=== PATIENT | female | born 1990 | race Caucasian/White ===

== ENCOUNTER 2020-08-24 21:07 | Emergency (ER) | payer OTHER ==
[2020-08-24] MEDS ORDERED: ONDANSETRON 4 MG/2 ML VIAL IVP STA (21:59)
[2020-08-24] MEDS ORDERED: SODIUM CHLORIDE 0.9% 1,000 ML IV STA (21:59)
[2020-08-24] MEDS ORDERED: PANTOPRAZOLE 40 MG/10 ML VIAL IVP STA (22:11)
[2020-08-24 22:20] LABS: Basophils % (A) 1 %; Eosinophils # (A) 0.1 k/uL (0-0.7); Eosinophils % (A) 2 %; HCT 43.8 % (34.0-46.0); Lymphocytes # (A) 2.1 k/uL (1.0-4.8); Lymphocytes % (A) 36 %; MCH 29.9 pg (25.0-35.0); MCHC 34.3 g/dL (31.0-37.0); Monocytes # (A) 0.3 k/uL (0-1.0); Monocytes % (A) 5 %; Neutrophils # (A) 3.2 k/uL (1.3-7.7); Neutrophils % (A) 55 %; Platelet Count 167 k/uL (150-450); RBC 5.04 m/uL (3.80-5.40); RDW 13.1 % (11.5-15.5); WBC 5.8 k/uL (3.8-10.6)
[2020-08-24 22:26] LABS: Appearance,Urine Clear (Clear); Bilirubin,Urine Negative (Negative); Blood,Urine Small (Negative); Color,Urine Yellow; Glucose,Urine (UA) Negative (Negative); Ketones,Urine Negative (Negative); Leukocyte Esterase,Urine Negative (Negative); Mucus,Urine Rare /hpf; Nitrite,Urine Negative (Negative); PH, Urine 6.5 (5.0-8.0); Protein,Urine Negative (Negative); RBC,Urine 1 /hpf (0-5); Specific Gravity,Urine 1.019 (1.001-1.035); Squamous Epithelial Cell,Urine 6 /hpf (0-4); Urobilinogen,Urine <2.0 mg/dL (<2.0); WBC,Urine 2 /hpf (0-5)
[2020-08-24 22:28] LABS: ALT 20 U/L (4-34); AST 22 U/L (14-36); African American GFR (CKD) >90 (>60 ml/min/1.73 sqM); Albumin 4.1 g/dL (3.5-5.0); Alkaline Phosphatase 59 U/L (38-126); Amylase 50 U/L (30-110); Anion Gap 7 mmol/L; Blood Urea Nitrogen 14 mg/dL (7-17); Calcium 9.1 mg/dL (8.4-10.2); Carbon Dioxide 22 mmol/L (22-30); Chloride 109 mmol/L (98-107); Glucose 91 mg/dL (74-99); Lipase 89 U/L (23-300); Non-African American GFR(CKD) >90 (>60 ml/min/1.73 sqM); Potassium 4.2 mmol/L (3.5-5.1); Sodium 138 mmol/L (137-145); Total Bilirubin 0.4 mg/dL (0.2-1.3)
--- NOTE | 2020-08-24 22:29 | ED ---
Abdominal Pain HPI - General Chief Complaint: Abdominal Pain Stated Complaint: Vomiting, Upper Resp Time Seen by Provider: 08/24/20 21:58 Source: patient Mode of arrival: ambulatory Limitations: no limitations - History of Present Illness Initial Comments: 29-year-old female presenting to the emergency department with a chief complaint of abdominal pain nausea vomiting diarrhea. Patient reports symptoms started about 2 days ago with diarrhea. She states this occurred after she had a burger from [employer] and she noticed the meat was redder than usual. Patient states she was hungry so she ate it. She reports today she has also developed nausea with multiple episodes of nonbilious and nonbloody vomiting. Patient reports she has not been able to keep much food down. She states there is some epigastric and right upper quadrant abdominal pain. She does report some generalized back pain as well. Denies any fevers or chills. She denies any hematuria, hematochezia or melena. Denies any urinary or vaginal symptoms. Denies chest pain shortness of breath. Patient reports surgical history of 2 C- sections and tubal ligation. - Related Data Home Medications Medication Instructions Recorded Confirmed Baclofen 10 mg PO HS PRN 08/24/20 08/24/20 Previous Rx's Medication Instructions Recorded Ondansetron Odt [Zofran Odt] 4 mg PO Q8HR PRN #20 tab 08/24/20 Allergies Allergy/AdvReac Type Severity Reaction Status Date / Time famotidine [From Pepcid] Allergy Nausea & Verified 08/24/20 23:11 Vomiting latex Allergy Rash/Hives Verified 08/24/20 23:11 prednisone Allergy Nausea & Verified 08/24/20 23:11 Vomiting Review of Systems ROS Statement: Those systems with pertinent positive or pertinent negative responses have been documented in the HPI. ROS Other: All systems not noted in ROS Statement are negative. Past Medical History Additional Past Medical History / Comment(s): endometriosis, hernia History of Any Multi-Drug Resistant Organisms: MRSA Date of last positivie culture/infection: 2007 MDRO Source:: (R) buttock Past Surgical History: Section Past Psychological History: Bipolar, Depression Smoking Status: Current every day smoker Past Alcohol Use History: Occasional Past Drug Use History: None Reported General Exam Limitations: no limitations General appearance: alert, in no apparent distress Head exam: Present: atraumatic, normocephalic, normal inspection Eye exam: Present: normal appearance, PERRL, EOMI Pupils: Present: normal accommodation ENT exam: Present: normal exam, normal oropharynx, mucous membranes moist, TM's normal bilaterally, normal external ear exam Neck exam: Present: normal inspection, full ROM. Absent: tenderness Respiratory exam: Present: normal lung sounds bilaterally. Absent: respiratory distress, wheezes, rales Cardiovascular Exam: Present: regular rate, normal rhythm, normal heart sounds. Absent: bradycardia, tachycardia, systolic murmur, diastolic murmur GI/Abdominal exam: Present: soft, tenderness (Upper abdominal pain. Negative Ny sign), normal bowel sounds. Absent: distended, guarding, rebound, rigid Extremities exam: Present: normal inspection, full ROM, normal capillary refill. Absent: tenderness, pedal edema, joint swelling, calf tenderness Back exam: Present: normal inspection, full ROM. Absent: tenderness, CVA tenderness (R), CVA tenderness (L) Neurological exam: Present: alert, oriented X3, normal gait Psychiatric exam: Present: normal affect, normal mood Skin exam: Present: warm, dry, intact, normal color Course Vital Signs 08/24/20 08/24/20 08/24/20 21:14 22:20 23:55 Temperature 98.6 F 98.1 F Pulse Rate 82 70 Respiratory 18 16 18 Rate Blood Pressure 143/98 150/98 O2 Sat by Pulse 98 100 Oximetry Medical Decision Making - Medical Decision Making 29-year-old female presenting to the emergency department with chief complaint nausea vomiting diarrhea and abdominal pain. On Physical examination, she had upper abdominal tenderness. Negative Ny sign. CBC CMP and UA is unremarkable. Patient is not . Right upper quadrant ultrasound is unremarkable. Patient was given IV fluids, antiemetics and Protonix. Our evaluation, patient continued to be nauseous. She was also given Reglan, Benadryl and Toradol after she also developed a headache. I suspect the patient has developed gastroneuritis secondary to eating a [employer] burger that apparently was not thoroughly cooked. Patient was discharged with Zofran. She was advised to drink plenty of fluids. She was also advised to follow with her primary care physician. Hand hygiene is also very important and it was stressed to her. Strict return parameters were thoroughly discussed the patient is worsening agreeable. Case discussed with physician. - Lab Data Result diagrams: 08/24/20 22:07 08/24/20 22:07 Lab Results 08/24/20 08/24/20 08/24/20 Range/Units 22:05 22:07 22:07 WBC 5.8 (3.8-10.6) k/uL RBC 5.04 (3.80-5.40) m/uL Hgb 15.0 (11.4-16.0) gm/dL Hct 43.8 (34.0-46.0) % MCV 87.0 (80.0-100.0) fL MCH 29.9 (25.0-35.0) pg MCHC 34.3 (31.0-37.0) g/dL RDW 13.1 (11.5-15.5) % Plt Count 167 (150-450) k/uL MPV 8.0 Neutrophils % 55 % Lymphocytes % 36 % Monocytes % 5 % Eosinophils % 2 % Basophils % 1 % Neutrophils # 3.2 (1.3-7.7) k/uL Lymphocytes # 2.1 (1.0-4.8) k/uL Monocytes # 0.3 (0-1.0) k/uL Eosinophils # 0.1 (0-0.7) k/uL Basophils # 0.0 (0-0.2) k/uL Sodium 138 (137-145) mmol/L Potassium 4.2 (3.5-5.1) mmol/L Chloride 109 H (98-107) mmol/L Carbon Dioxide 22 (22-30) mmol/L Anion Gap 7 mmol/L BUN 14 (7-17) mg/dL Creatinine 0.80 (0.52-1.04) mg/dL Est GFR (CKD-EPI)AfAm >90 (>60 ml/min/1.73 sqM) Est GFR (CKD-EPI)NonAf >90 (>60 ml/min/1.73 sqM) Glucose 91 (74-99) mg/dL Calcium 9.1 (8.4-10.2) mg/dL Total Bilirubin 0.4 (0.2-1.3) mg/dL AST 22 (14-36) U/L ALT 20 (4-34) U/L Alkaline Phosphatase 59 (38-126) U/L Total Protein 7.0 (6.3-8.2) g/dL Albumin 4.1 (3.5-5.0) g/dL Amylase 50 (30-110) U/L Lipase 89 (23-300) U/L Urine Color Urine Appearance (Clear) Urine pH (5.0-8.0) Ur Specific [place] (1.001-1.035) Urine Protein (Negative) Urine Glucose (UA) (Negative) Urine Ketones (Negative) Urine Blood (Negative) Urine Nitrite (Negative) Urine Bilirubin (Negative) Urine Urobilinogen (<2.0) mg/dL Ur Leukocyte Esterase (Negative) Urine RBC (0-5) /hpf Urine WBC (0-5) /hpf Ur Squamous Epith Cells (0-4) /hpf Urine Mucus (None) /hpf Urine HCG, Qual Not Detected (Not Detectd) 08/24/20 Range/Units 22:17 WBC (3.8-10.6) k/uL RBC (3.80-5.40) m/uL Hgb (11.4-16.0) gm/dL Hct (34.0-46.0) % MCV (80.0-100.0) fL MCH (25.0-35.0) pg MCHC (31.0-37.0) g/dL RDW (11.5-15.5) % Plt Count (150-450) k/uL MPV Neutrophils % % Lymphocytes % % Monocytes % % Eosinophils % % Basophils % % Neutrophils # (1.3-7.7) k/uL Lymphocytes # (1.0-4.8) k/uL Monocytes # (0-1.0) k/uL Eosinophils # (0-0.7) k/uL Basophils # (0-0.2) k/uL Sodium (137-145) mmol/L Potassium (3.5-5.1) mmol/L Chloride (98-107) mmol/L Carbon Dioxide (22-30) mmol/L Anion Gap mmol/L BUN (7-17) mg/dL Creatinine (0.52-1.04) mg/dL Est GFR (CKD-EPI)AfAm (>60 ml/min/1.73 sqM) Est GFR (CKD-EPI)NonAf (>60 ml/min/1.73 sqM) Glucose (74-99) mg/dL Calcium (8.4-10.2) mg/dL Total Bilirubin (0.2-1.3) mg/dL AST (14-36) U/L ALT (4-34) U/L Alkaline Phosphatase (38-126) U/L Total Protein (6.3-8.2) g/dL Albumin (3.5-5.0) g/dL Amylase (30-110) U/L Lipase (23-300) U/L Urine Color Yellow Urine Appearance Clear (Clear) Urine pH 6.5 (5.0-8.0) Ur Specific [place] 1.019 (1.001-1.035) Urine Protein Negative (Negative) Urine Glucose (UA) Negative (Negative) Urine Ketones Negative (Negative) Urine Blood Small H (Negative) Urine Nitrite Negative (Negative) Urine Bilirubin Negative (Negative) Urine Urobilinogen <2.0 (<2.0) mg/dL Ur Leukocyte Esterase Negative (Negative) Urine RBC 1 (0-5) /hpf Urine WBC 2 (0-5) /hpf Ur Squamous Epith Cells 6 H (0-4) /hpf Urine Mucus Rare H (None) /hpf Urine HCG, Qual (Not Detectd) Disposition Clinical Impression: Nausea vomiting and diarrhea, Gastroenteritis Disposition: HOME SELF-CARE Condition: Good Instructions (If sedation given, give patient instructions): Gastroenteritis (DC) Additional Instructions: Take prescribed medication as directed. Drink plenty of fluids. Follow with the primary care physician. Return to emergency department if symptoms worsen. Prescriptions: Ondansetron Odt [Zofran Odt] 4 mg PO Q8HR PRN #20 tab PRN Reason: Nausea Is patient prescribed a controlled substance at d/c from ED?: No Referrals: Billy Becker MD [Primary Care Provider] - 1-2 days Time of Disposition: 23:26
--- NOTE | 2020-08-24 23:04 | US ---
EXAMINATION TYPE: US abdomen limited DATE OF EXAM: 08/24/2020 COMPARISON: NONE CLINICAL HISTORY: ruq abd pain. N/V for 4 days EXAM MEASUREMENTS: Liver Length: 15.9 cm Gallbladder Wall: 0.2 cm CBD: 0.5 cm Right Kidney: 10.8 x 4.7 x 4.4 cm Pancreas: wnl Liver: 1.0 x 0.7 x 0.8cm cyst seen within right lobe, otherwise wnl Gallbladder: wnl Evidence for sonographic Ny's sign: no CBD: wnl Right Kidney: wnl IMPRESSION: There is small hepatic cyst. No gallstones or dilated ducts. No free fluid.
[2020-08-24] MEDS ORDERED: METOCLOPRAMIDE 5 MG/ML 2 ML VIAL IVP STA (23:24)
[2020-08-24] MEDS ORDERED: diphenhydrAMINE 50 MG/ML 1 ML VIAL IVP STA (23:24)
[2020-08-24] MEDS ORDERED: KETOROLAC 15 MG/ML 1 ML VIAL IVP STA (23:24)
[2020-08-24 23:57] VITALS: BP 150/98; PULSE 70; RESP 18; TEMP 98.1
== END 2020-08-24 23:55 | disposition home or self-care (01) ==
LOC: EC 21:07
DX: K52.9 Noninfective gastroenteritis and colitis, unspecified (principal); R51.9 Headache, unspecified; F17.200 Nicotine dependence, unspecified, uncomplicated; Z88.8 Allergy status to other drugs, medicaments and biological substances; Z91.040 Latex allergy status
CPT/HCPCS: 36415; 80053; 82150; 83690; 85025; 81001; 81025; 76705; 99284; 96374; 96375 ×4; 96361 ×2; J1200; J2765; J2405; J1885; C9113

== ENCOUNTER → 2020-11-03 | Outpatient (CLI) | payer OTHER ==
--- NOTE | 2020-11-03 16:29 | XR ---
EXAMINATION TYPE: XR lumbosacral spine min 4V DATE OF EXAM: 11/03/2020 CLINICAL HISTORY: Low back pain today, history of remote injury. TECHNIQUE: Frontal, lateral, and oblique images of the lumbar spine are obtained. COMPARISON: None. FINDINGS: There are 5 lumbar type vertebral bodies identified. The lumbar spine shows satisfactory alignment without evidence of acute fracture or dislocation. Mild disc space narrowing L4-L5 level. V ertebral body heights and disk space heights otherwise are within normal limits. The oblique images appear within normal limits. Mild anterior spurring in lower lumbar levels. Possible spina bifida d efect S1 level. The overlying soft tissue appears unremarkable. IMPRESSION: As above.
== END | disposition home or self-care (01) ==
LOC: RADXRMAIN 16:01
PROVIDERS: ATTEND Internal Medicine
DX: M99.73 Connective tissue and disc stenosis of intervertebral foramina of lumbar region (principal)
CPT/HCPCS: 72110

== ENCOUNTER → 2020-11-10 | Outpatient (CLI) | payer OTHER ==
[2020-11-10 19:28] LABS: Basophils # (A) 0.03 X 10*3/uL (0.00-0.10); Basophils % (A) 0.4 %; Eosinophils # (A) 0.04 X 10*3/uL (0.04-0.35); Eosinophils % (A) 0.6 %; HCT 44.3 % (37.2-46.3); HGB 14.5 g/dL (12.0-15.0); Lymphocytes # (A) 1.68 X 10*3/uL (0.90-5.00); Lymphocytes % (A) 24.4 %; MCH 28.5 pg (27.0-32.0); MCHC 32.7 g/dL (32.0-37.0); Mean Platelet Volume 11.4 fL (9.5-12.2); Monocytes # (A) 0.37 X 10*3/uL (0.20-1.00); Monocytes % (A) 5.4 %; Neutrophils # (A) 4.75 X 10*3/uL (1.80-7.70); Neutrophils % (A) 69.1 %; Platelet Count 157 X 10*3/uL (140-440); RBC 5.09 X 10*6/uL (4.10-5.20); RDW 12.9 % (11.5-14.5); WBC 6.88 X 10*3/uL (4.50-10.00)
[2020-11-11 01:19] LABS: T4, Free (Free Thyroxine) 1.1 ng/dL (0.80-1.80)
[2020-11-11 01:50] LABS: % Iron Saturation 21.89 (12.00-45.00); African American GFR (CKD) 136.7 (60.0-200.0); Albumin/Globulin Ratio 2.27 (1.60-3.17); Anion Gap 10.6 mmol/L (4.00-12.00); BUN/Creat Ratio 14.29 Ratio (12.00-20.00); Calcium 9.5 mg/dL (8.7-10.3); Carbon Dioxide 24.4 mmol/L (21.6-31.8); Globulin 2.2 g/dL (1.6-3.3); Non-African American GFR(CKD) 117.9 (60.0-200.0); Potassium 4.1 mmol/L (3.5-5.5); Total Bilirubin 0.5 mg/dL (0.3-1.2); Total Protein 7.2 g/dL (6.2-8.2)
[2020-11-11 13:12] LABS: Hepatitis A Antibody IgM Non-Reactive (Non-Reactive); Hepatitis B Core IgM Non-Reactive (Non-Reactive); Hepatitis B Surface Antigen Non-Reactive (Non-Reactive); Hepatitis C IgG Antibody Non-Reactive (Non-Reactive)
== END | disposition home or self-care (01) ==
LOC: LABWHC1 14:44
PROVIDERS: ATTEND Nurse Practitioner Acute Care
DX: E55.9 Vitamin D deficiency, unspecified (principal); G25.81 Restless legs syndrome; M13.0 Polyarthritis, unspecified
CPT/HCPCS: 36415; 80053; 80074; 82306; 82607; 83540; 83550; 84207; 84439; 84443; 84481; 85025; 86431

== ENCOUNTER 2021-02-07 08:00 | Emergency (ER) | payer OTHER ==
[2021-02-07 08:06] VITALS: RESP 18; TEMP 98
[2021-02-07] MEDS ORDERED: HYDROmorphone 0.5 MG/0.5 ML SYRINGE IM STA (08:34)
[2021-02-07] MEDS ORDERED: CYCLOBENZAPRINE 10 MG TAB PO STA (08:34)
--- NOTE | 2021-02-07 08:36 | ED ---
Back Pain HPI - General Chief Complaint: Back Pain/Injury Stated Complaint: Back pain Time Seen by Provider: 02/07/21 08:15 Source: patient Limitations: no limitations - History of Present Illness Initial Comments: 30-year-old female past history of chronic back pain since an injury in 2012 presenting to the ER today for chief complaint of low back pain radiating down the right leg. Patient states that she has had low back. On right leg for years. she states it is hard to move her toes on the right foot but she states that she had a normal EMG a feel weeks ago. Pt states she follows neurology/pain management. Pt states that she frequently has exacerbations of this pain. pt statse she doenst knwo what else she can do. she states she is supposed to have injections in the muscles near the spine. Patient denies any loss of bowel bladder control urinary retention decreased sensation in the genital or upper thigh region, fevers, IVDU, cancer, . pt has no additional complaints. upon arrival pt appears well nontoxic in no acute distress/ - Related Data Home Medications Medication Instructions Recorded Confirmed Baclofen 10 mg PO HS PRN 08/24/20 08/24/20 Previous Rx's Medication Instructions Recorded Ondansetron Odt [Zofran Odt] 4 mg PO Q8HR PRN #20 tab 08/24/20 Allergies Allergy/AdvReac Type Severity Reaction Status Date / Time famotidine [From Pepcid] Allergy Nausea & Verified 02/07/21 08:03 Vomiting latex Allergy Rash/Hives Verified 02/07/21 08:03 prednisone Allergy Nausea & Verified 02/07/21 08:03 Vomiting Review of Systems ROS Statement: Those systems with pertinent positive or pertinent negative responses have been documented in the HPI. ROS Other: All systems not noted in ROS Statement are negative. Past Medical History Additional Past Medical History / Comment(s): endometriosis, hernia, chronic neck and back issues, brain aneurysm History of Any Multi-Drug Resistant Organisms: MRSA Date of last positivie culture/infection: 2007 MDRO Source:: (R) buttock Past Surgical History: Section, Tubal Ligation Past Psychological History: Depression Smoking Status: Current every day smoker Past Alcohol Use History: Occasional Past Drug Use History: None Reported General Exam - General Exam Comments Initial Comments: General: The patient is awake and alert, in no distress Eye: +3 mm pupils are equal, round and reactive to light, extra-ocular movements are intact. No nystagmus. There is normal conjunctiva bilaterally. No signs of icterus. Ears, nose, mouth and throat: There are moist mucous membranes and no oral lesions. Neck: The neck is supple, there is no tenderness or JVD. Cardiovascular: There is a regular rate and rhythm. No murmur, rub or gallop is appreciated. Respiratory: Lungs are clear to auscultation, respirations are non-labored, breath sounds are equal. No wheezes, stridor, rales, or rhonchi. Gastrointestinal: Soft, non-distended, non-tender abdomen without masses or organomegaly noted. There is no rebound or guarding present. Musculoskeletal: Normal ROM, no tenderness. Strength 5/5 of the LE b/l. Sensation intact of the LE b/l including saddle region. Radial and Dp pulses equal bilaterally 2+. No myoclonus or fasciculations. ambulatory. Neurological: A&O x 3. CN II-XII intact, There are no obvious motor or sensory deficits. Coordination appears grossly intact. Speech is normal. Skin: Skin is warm and dry and no rashes or lesions are noted. Psychiatric: Cooperative, appropriate mood & affect, normal judgment. Limitations: no limitations Course Vital Signs 02/07/21 02/07/21 08:03 09:29 Temperature 98 F Pulse Rate 83 70 Respiratory 18 18 Rate Blood Pressure 149/106 138/90 O2 Sat by Pulse 100 100 Oximetry - Reevaluation(s) Reevaluation #1: initally pt was saying she couldnt dorsiflex foot but on second evaluation pt doing it without issues... 02/07/21 Medical Decision Making - Medical Decision Making 30yo presenting with aucte on chronic back pain. currently seeing neurology/pain control. pt has no evidence convincing for cauda equina on exam or history. pt presented for pain control. pt has no additional concerns. symptoms ongoing x weeks. discussed importance of f/u with orthopedic spine/neurosrugery. pt discharged appearing well. Disposition Clinical Impression: Chronic low back pain Disposition: HOME SELF-CARE Condition: Good Instructions (If sedation given, give patient instructions): Lumbar Radiculopathy (ED) Additional Instructions: Please use medication as discussed. Please follow-up with family doctor in the next 2 days. Please return to emergency room if the symptoms increase or worsen or for any other concerns. Is patient prescribed a controlled substance at d/c from ED?: No Referrals: Hernan Delgado MD [Primary Care Provider] - 1-2 days Carlos Mark DO [Doctor of Osteopathic Medicine] - 1-2 days Grover Cavazos MD [STAFF PHYSICIAN] - 1-2 days
[2021-02-07] MEDS ORDERED: GABAPENTIN 300 MG CAP PO STA (09:10)
[2021-02-07 09:30] VITALS: BP 138/90; PULSE 70
== END 2021-02-07 09:29 | disposition home or self-care (01) ==
LOC: EC 08:00
DX: M54.5 Low back pain (principal); G89.29 Other chronic pain; F17.200 Nicotine dependence, unspecified, uncomplicated; Z98.51 Tubal ligation status
CPT/HCPCS: 99283; 96372; J1170

== ENCOUNTER → 2021-02-21 | Outpatient (CLI) | payer OTHER ==
[2021-02-21 21:20] LABS: African American GFR (CKD) 135.7 (60.0-200.0); Albumin 4.6 g/dL (3.80-4.90); Anion Gap 6.5 mmol/L (4.00-12.00); BUN/Creat Ratio 12.86 Ratio (12.00-20.00); Calcium 9.1 mg/dL (8.7-10.3); Carbon Dioxide 26.5 mmol/L (21.6-31.8); Globulin 2.3 g/dL (1.6-3.3); Non-African American GFR(CKD) 117.1 (60.0-200.0); Total Bilirubin 0.4 mg/dL (0.3-1.2); Total Protein 6.9 g/dL (6.2-8.2)
== END | disposition home or self-care (01) ==
LOC: LABWHC1 12:47
PROVIDERS: ATTEND Nurse Practitioner Acute Care
DX: E55.9 Vitamin D deficiency, unspecified (principal)
CPT/HCPCS: 36415; 80053; 82306

== ENCOUNTER 2021-04-03 12:29 | Emergency (ER) | payer OTHER ==
[2021-04-03 12:47] VITALS: BP 126/83; PULSE 75; RESP 16; TEMP 98.4
--- NOTE | 2021-04-03 13:21 | ED ---
General Adult HPI - General Source: patient Mode of arrival: ambulatory Limitations: no limitations - History of Present Illness -: days(s) (2) Location: abdomen Improves with: none Worsens with: none Associated Symptoms: denies other symptoms Treatments Prior to Arrival: none <Ana Chen - Last Filed: 04/03/21 14:38> <Bishop Oakes Jason - Last Filed: 04/03/21 15:47> - General Chief complaint: Recheck/Abnormal Lab/Rx Stated complaint: Infection on stretch nevarez Time Seen by Provider: 04/03/21 12:56 - History of Present Illness Initial comments: 30-year-old female presents with lower abdominal discomfort and skin irritation. Patient states she's had abdominal discomfort on and off for the last few days and having a hard time having a bowel movement. Patient noticed yesterday that she had some sores on her lower abdomen under her skin fold and the drain some pustular bloody material today. No fever chills no change of . No back pain no dysuria. Patient did have a laparoscopic surgery a month ago. No change of flatulence. No increase in back pain. (Ana Chen) - Related Data Home Medications Medication Instructions Recorded Confirmed Baclofen 10 mg PO HS PRN 08/24/20 08/24/20 Previous Rx's Medication Instructions Recorded Ondansetron Odt [Zofran Odt] 4 mg PO Q8HR PRN #20 tab 08/24/20 Cephalexin [Keflex] 500 mg PO Q8HR 1 Days #3 cap 04/03/21 Nystatin 100,000Unit/gm Cream 1 applic TOPICAL BID #30 gm 04/03/21 [Mycostatin Cream] Sulfamethox-Tmp 800-160Mg [Bactrim 1 tab PO Q12HR #28 tab 04/03/21 DS 800-160 mg] Allergies Allergy/AdvReac Type Severity Reaction Status Date / Time diclofenac Allergy Rash/Hives Verified 04/03/21 12:47 famotidine [From Pepcid] Allergy Nausea & Verified 04/03/21 12:47 Vomiting latex Allergy Rash/Hives Verified 04/03/21 12:47 prednisone Allergy Nausea & Verified 04/03/21 12:47 Vomiting Review of Systems ROS Other: All systems not noted in ROS Statement are negative. Constitutional: Denies: fever Gastrointestinal: Reports: abdominal pain, constipation Genitourinary: Denies: urgency, frequency, hematuria Skin: Reports: rash, lesions <Ana Chen - Last Filed: 04/03/21 14:38> ROS Other: All systems not noted in ROS Statement are negative. <Bishop Oakes - Last Filed: 04/03/21 15:47> ROS Statement: Those systems with pertinent positive or pertinent negative responses have been documented in the HPI. Past Medical History Additional Past Medical History / Comment(s): endometriosis, hernia, chronic neck and back issues, brain aneurysm History of Any Multi-Drug Resistant Organisms: MRSA Date of last positivie culture/infection: 2007 MDRO Source:: (R) buttock Past Surgical History: Section, Tubal Ligation Past Psychological History: Depression Smoking Status: Current every day smoker Past Alcohol Use History: Occasional Past Drug Use History: None Reported <Ana Chen - Last Filed: 04/03/21 14:38> General Exam Limitations: no limitations General appearance: alert, in no apparent distress, obese Eye exam: Present: normal appearance, PERRL, EOMI. Absent: scleral icterus, conjunctival injection, periorbital swelling ENT exam: Present: normal exam, mucous membranes moist Respiratory exam: Present: normal lung sounds bilaterally. Absent: respiratory distress, wheezes, rales, rhonchi, stridor Cardiovascular Exam: Present: regular rate, normal rhythm, normal heart sounds. Absent: systolic murmur, diastolic murmur, rubs, gallop, clicks GI/Abdominal exam: Present: soft, tenderness (mild lower tender b/l), normal jamaal wel sounds. Absent: distended, guarding, rebound, rigid Back exam: Present: normal inspection. Absent: CVA tenderness (R), CVA tenderness (L) Neurological exam: Present: alert, oriented X3, CN II-XII intact Psychiatric exam: Present: normal affect, normal mood Skin exam: Present: warm, dry, normal color. Absent: intact (few small skin tears b/l lower abd under skin fold, few indurated lesion under abd skin fold < 1 cm. slight drainage from area, ,no erythema), rash <Ana Chen - Last Filed: 04/03/21 14:38> Course Vital Signs 04/03/21 12:43 Temperature 98.4 F Pulse Rate 75 Respiratory 16 Rate Blood Pressure 126/83 O2 Sat by Pulse 99 Oximetry Medical Decision Making - Lab Data Result diagrams: 04/03/21 13:33 04/03/21 13:33 <Ana Chen - Last Filed: 04/03/21 14:38> - Lab Data Result diagrams: 04/03/21 13:33 04/03/21 13:33 <Bishop Oakes - Last Filed: 04/03/21 15:47> - Medical Decision Making Patient has a few areas on her lower abdomen under her skin fold that showed an abscess that may be have drained overnight. Wound culture taken. Patient will be started on antibiotics. Patient given tips on how to keep area clean dry. We also gave topical barrier cream as well. dicussed with dr. Malave, will take over care waiting on ct abd platelets 131 (Ana Chen) Did evaluate this patient after sign out, CT showing ovarian cyst and a soft tissue density within the abdominal wall which does correspond to one of the 2 issues that the patient is dealing with. The one on her right lower abdomen had predominantly blood in the one on the left lower abdomen did have some pus. She will be covered with antibiotics. 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 (Bishop Oakes) - Lab Data Lab Results 04/03/21 04/03/21 04/03/21 Range/Units 13:33 13:33 13:33 WBC 6.7 (3.8-10.6) k/uL RBC 4.88 (3.80-5.40) m/uL Hgb 14.3 (11.4-16.0) gm/dL Hct 41.3 (34.0-46.0) % MCV 84.5 (80.0-100.0) fL MCH 29.2 (25.0-35.0) pg MCHC 34.5 (31.0-37.0) g/dL RDW 14.0 (11.5-15.5) % Plt Count 131 L (150-450) k/uL MPV 8.7 Neutrophils % 69 % Lymphocytes % 26 % Monocytes % 3 % Eosinophils % 1 % Basophils % 0 % Neutrophils # 4.6 (1.3-7.7) k/uL Lymphocytes # 1.7 (1.0-4.8) k/uL Monocytes # 0.2 (0-1.0) k/uL Eosinophils # 0.1 (0-0.7) k/uL Basophils # 0.0 (0-0.2) k/uL Sodium 139 (137-145) mmol/L Potassium 4.1 (3.5-5.1) mmol/L Chloride 110 H (98-107) mmol/L Carbon Dioxide 21 L (22-30) mmol/L Anion Gap 8 mmol/L BUN 11 (7-17) mg/dL Creatinine 0.53 (0.52-1.04) mg/dL Est GFR (CKD-EPI)AfAm >90 (>60 ml/min/1.73 sqM) Est GFR (CKD-EPI)NonAf >90 (>60 ml/min/1.73 sqM) Glucose 83 (74-99) mg/dL Calcium 9.0 (8.4-10.2) mg/dL Total Bilirubin 0.3 (0.2-1.3) mg/dL AST 21 (14-36) U/L ALT 21 (4-34) U/L Alkaline Phosphatase 54 (38-126) U/L Total Protein 6.7 (6.3-8.2) g/dL Albumin 4.1 (3.5-5.0) g/dL Urine Color Light Yellow Urine Appearance Clear (Clear) Urine pH 6.5 (5.0-8.0) Ur Specific [place] 1.006 (1.001-1.035) Urine Protein Negative (Negative) Urine Glucose (UA) Negative (Negative) Urine Ketones Negative (Negative) Urine Blood Negative (Negative) Urine Nitrite Negative (Negative) Urine Bilirubin Negative (Negative) Urine Urobilinogen <2.0 (<2.0) mg/dL Ur Leukocyte Esterase Negative (Negative) Urine HCG, Qual (Not Detectd) 04/03/21 Range/Units 13:59 WBC (3.8-10.6) k/uL RBC (3.80-5.40) m/uL Hgb (11.4-16.0) gm/dL Hct (34.0-46.0) % MCV (80.0-100.0) fL MCH (25.0-35.0) pg MCHC (31.0-37.0) g/dL RDW (11.5-15.5) % Plt Count (150-450) k/uL MPV Neutrophils % % Lymphocytes % % Monocytes % % Eosinophils % % Basophils % % Neutrophils # (1.3-7.7) k/uL Lymphocytes # (1.0-4.8) k/uL Monocytes # (0-1.0) k/uL Eosinophils # (0-0.7) k/uL Basophils # (0-0.2) k/uL Sodium (137-145) mmol/L Potassium (3.5-5.1) mmol/L Chloride (98-107) mmol/L Carbon Dioxide (22-30) mmol/L Anion Gap mmol/L BUN (7-17) mg/dL Creatinine (0.52-1.04) mg/dL Est GFR (CKD-EPI)AfAm (>60 ml/min/1.73 sqM) Est GFR (CKD-EPI)NonAf (>60 ml/min/1.73 sqM) Glucose (74-99) mg/dL Calcium (8.4-10.2) mg/dL Total Bilirubin (0.2-1.3) mg/dL AST (14-36) U/L ALT (4-34) U/L Alkaline Phosphatase (38-126) U/L Total Protein (6.3-8.2) g/dL Albumin (3.5-5.0) g/dL Urine Color Urine Appearance (Clear) Urine pH (5.0-8.0) Ur Specific [place] (1.001-1.035) Urine Protein (Negative) Urine Glucose (UA) (Negative) Urine Ketones (Negative) Urine Blood (Negative) Urine Nitrite (Negative) Urine Bilirubin (Negative) Urine Urobilinogen (<2.0) mg/dL Ur Leukocyte Esterase (Negative) Urine HCG, Qual Not Detected (Not Detectd) Disposition Is patient prescribed a controlled substance at d/c from ED?: No When asked, does pt state using other controlled substances?: No <Ana Chen - Last Filed: 04/03/21 14:38> Time of Disposition: 15:47 <Bishop Oakes - Last Filed: 04/03/21 15:47> Clinical Impression: Abdominal pain, Skin abscess, Skin candidiasis, Skin breakdown Disposition: HOME SELF-CARE Condition: Good Instructions (If sedation given, give patient instructions): Abscess (ED), Abdominal Pain (ED), Skin Yeast Infection (ED) Prescriptions: Sulfamethox-Tmp 800-160Mg [Bactrim DS 800-160 mg] 1 tab PO Q12HR #28 tab Cephalexin [Keflex] 500 mg PO Q8HR 1 Days #3 cap Nystatin 100,000Unit/gm Cream [Mycostatin Cream] 1 applic TOPICAL BID #30 gm Referrals: Hernan Delgado MD [Primary Care Provider] - 1-2 days
[2021-04-03 14:13] LABS: Basophils % (A) 0 %; Eosinophils # (A) 0.1 k/uL (0-0.7); Eosinophils % (A) 1 %; HCT 41.3 % (34.0-46.0); HGB 14.3 gm/dL (11.4-16.0); Lymphocytes # (A) 1.7 k/uL (1.0-4.8); Lymphocytes % (A) 26 %; MCH 29.2 pg (25.0-35.0); MCHC 34.5 g/dL (31.0-37.0); MCV 84.5 fL (80.0-100.0); Mean Platelet Volume 8.7; Monocytes # (A) 0.2 k/uL (0-1.0); Monocytes % (A) 3 %; Neutrophils # (A) 4.6 k/uL (1.3-7.7); Neutrophils % (A) 69 %; Platelet Count 131 k/uL (150-450); RBC 4.88 m/uL (3.80-5.40); WBC 6.7 k/uL (3.8-10.6)
[2021-04-03 14:18] LABS: Appearance,Urine Clear (Clear); Bilirubin,Urine Negative (Negative); Blood,Urine Negative (Negative); Color,Urine Light Yellow; Glucose,Urine (UA) Negative (Negative); Ketones,Urine Negative (Negative); Leukocyte Esterase,Urine Negative (Negative); Nitrite,Urine Negative (Negative); PH, Urine 6.5 (5.0-8.0); Protein,Urine Negative (Negative); Specific Gravity,Urine 1.006 (1.001-1.035); Urobilinogen,Urine <2.0 mg/dL (<2.0)
[2021-04-03 14:25] LABS: ALT 21 U/L (4-34); AST 21 U/L (14-36); African American GFR (CKD) >90 (>60 ml/min/1.73 sqM); Albumin 4.1 g/dL (3.5-5.0); Alkaline Phosphatase 54 U/L (38-126); Anion Gap 8 mmol/L; Blood Urea Nitrogen 11 mg/dL (7-17); Carbon Dioxide 21 mmol/L (22-30); Chloride 110 mmol/L (98-107); Glucose 83 mg/dL (74-99); Non-African American GFR(CKD) >90 (>60 ml/min/1.73 sqM); Potassium 4.1 mmol/L (3.5-5.1); Sodium 139 mmol/L (137-145); Total Bilirubin 0.3 mg/dL (0.2-1.3); Total Protein 6.7 g/dL (6.3-8.2)
--- NOTE | 2021-04-03 15:36 | CT ---
EXAMINATION TYPE: CT abdomen pelvis w con DATE OF EXAM: 04/03/2021 COMPARISON: None HISTORY: post-op abdominal pain CT DLP: 1540.8 mGycm Automated exposure control for dose reduction was used. CONTRAST: Performed with IV Contrast, patient injected with 100 mL of Isovue 300. Lung bases are clear. There is no pleural effusion. Heart size is normal. There is no pericardial eff usion. Liver spleen stomach pancreas gallbladder appear intact. The bile ducts are not dilated. There is no adrenal mass. Kidneys show satisfactory contrast opacification. There is no hydronephrosi s. There is 3 cm umbilical hernia that contains fat. Ureters are not dilated. Delayed images show nor mal renal excretion. There is no retroperitoneal adenopathy. The bladder distends smoothly. There is no inguinal hernia. Uterus is anteverted. There is no free fluid in the pelvis. There is 3.6 cm cyst on the right ovary. The appendix appears normal. There is 1.5 cm subcutaneous rounded soft tissue den sity near the left side anterior abdominal wall in the lower abdomen of uncertain significance. There is no mesenteric edema. There is no ascites or free air. There is no bowel obstruction. There i s very tiny amount of free fluid in the cul-de-sac. This could be physiologic. The lumbar vertebra have normal alignment. Disc spaces are normal. Posterior elements are intact. Bon y pelvis is intact. IMPRESSION: Right ovarian cyst. Tiny amount of pelvic free fluid. Umbilical hernia contains fat.
== END 2021-04-03 16:00 | disposition home or self-care (01) ==
LOC: EC 12:29
DX: B37.2 Candidiasis of skin and nail (principal); L02.211 Cutaneous abscess of abdominal wall; F17.200 Nicotine dependence, unspecified, uncomplicated; F32.9 Major depressive disorder, single episode, unspecified; Z79.899 Other long term (current) drug therapy; Z91.040 Latex allergy status
CPT/HCPCS: 36415; 80053; 85025; 81003; 81025; 87070; 87205; 74177; 99283; J0696; Q9967

== ENCOUNTER → 2022-01-18 | Outpatient (CLI) | payer OTHER ==
--- NOTE | 2022-01-18 12:57 | P.STRESS ---
- Stress Test Note Stress Test Results/Findings: Exam Performed: stress test Exam Date: 01/18/22 Reason for Exam: cp Height: 5 ft 7 in Weight: 205 kg Protocol: jerry Stage: III Duration of Exercise: 10.20 Resting Heart Rate: 77 Resting Blood Pressure: 125/86 Maximum Achieved Heart Rate: 77 Maximum Achieved Blood Pressure: 125/86 85% PMHR: 162 100% PMHR: 190 METS: 11.5 Technologist Comment: Stress Test Results/Findings: Patient underwent exercise stress EKG with a Jerry protocol treadmill stress test. Patient exercised into Stage 3 for a total of 10 minutes and 20 seconds reaching a total of 11.5 METS. Patient's maximum heart rate was 175 which represented 92 % age-predicted maximum heart rate. Patient did have a chest burning sensation with exertion. Stress EKG findings: At baseline patient's EKG showed normal sinus rhythm, normal axis, no significant ST or T-wave abnormalities. At peak exercise, EKG showed occasional PVCs, nondiagnostic 0.[address] depressions in the inferior and lateral leads. Conclusions: 1. Normal EKG response to exercise without evidence of inducible ischemia. 2. Excellent exercise capacity. 3. Chest burning noted with exertion. Clinical correlation recommended.
== END | disposition home or self-care (01) ==
LOC: RADNMMAIN 10:46
PROVIDERS: ATTEND Internal Medicine
DX: R07.89 Other chest pain (principal)
CPT/HCPCS: 93017